=== PATIENT | female | born 1995 | race Caucasian/White ===

== ENCOUNTER 2017-05-29 10:56 | Emergency (ER) | payer OTHER ==
[~2017-05-29] VITALS: Ht 157.5 cm; Wt 57.6 kg
[~2017-05-29 10:56] MED LIST: SERT50TA PO
[2017-05-29] MEDS ORDERED: IV NORMAL SALINE 1,000ML 1,000 ML IV SCH (11:25)
--- NOTE | 2017-05-29 11:31 | PHYS DOC ---
Past History Past Medical History: Depression Past Surgical History: Appendectomy, Alcohol Use: None Drug Use: Marijuana Adult General Chief Complaint Chief Complaint: VOMITING IN HPI HPI Patient is a 21-year-old female who drove herself to the emergency department complaining of vomiting during . Patient states she is about 8 or 9 weeks , she has had 2 ultrasounds that differed by one week. Her last ultrasound was 2 days ago in the doctor's office with one baby, measuring 9 weeks 2 days. Patient is G3, first was a miscarriage, second she had some nausea with occasional vomiting otherwise did well. Patient states for about one week she has been having vomiting of virtually everything she has eaten or drank. Yesterday she was able to keep down one half cup of ROM and but vomited the other half cup. OB doctor, Dr. Mcgee. Patient's next appointment is June 02 or . Patient denies spotting. She states her stomach is sore from vomiting so much. Patient is in good general health. No chronic GI problems. Review of Systems Review of Systems Constitutional: Denies fever or chills [] GI: As in history of present illness : As in history of present illness Musculoskeletal: She has strained muscles from vomiting Allergies Allergies Allergies Coded Allergies Type Severity Reaction Last Updated Verified bee venom (honey bee) Allergy Mild 07/18/15 Yes blue dye Allergy Mild 07/18/15 Yes wasp venom Allergy Mild 07/18/15 Yes Physical Exam Physical Exam Constitutional: Well developed, well nourished, no acute distress, non-toxic appearance. Alert, mentating normally, no acute distress. HENT: Normocephalic, atraumatic, bilateral external ears normal, nose normal. [] Eyes: conjunctiva normal, no discharge. [] Neck: Normal range of motion, no stridor. [] Cardiovascular:Heart rate regular rhythm, no murmur [] Lungs & Thorax: Bilateral breath sounds clear to auscultation [] Abdomen: Bowel sounds normal, soft, nondistended, mild generalized tenderness to palpation, no lower abdominal tenderness, no masses, no pulsatile masses. [] Skin: Warm, dry, no erythema, no rash. [] Extremities: No tenderness, no cyanosis, no clubbing, ROM intact, no edema. [] Neurologic: Alert and oriented X 3, normal motor function, no focal deficits noted. [] EKG EKG [] Radiology/Procedures Radiology/Procedures [] Course & Med Decision Making Course & Med Decision Making Pertinent Labs and Imaging studies reviewed. (See chart for details) 21-year-old female who states she is 8 or 9 weeks , has had 2 ultrasounds, the most recent one 2 days ago showing one live IUP. Presents with 1 week of fairly intractable nausea and vomiting. We will check some labs, give her some IV fluids and IV Zofran. She is agreeable to that plan. Patient had a liter of IV fluids and IV Zofran. She did not vomit in the emergency department. She felt a lot better and is stable for discharge. See instructions for plan. [] Dragon Disclaimer Dragon Disclaimer This electronic medical record was generated, in whole or in part, using a voice recognition dictation system. Departure Departure: Impression: Primary Impression: Vomiting affecting Disposition: HOME, SELF-CARE Condition: IMPROVED Referrals: MAGDY PENA MD (PCP) Patient Instructions: Diet - Hyperemesis Gravidarum, Nausea and Vomiting, Easy- to-Read Additional Instructions: Small amounts of liquids frequently. Drink liquids that have calories such as juices, Sprite, Gatorade, etc. Try Zofran as prescribed, if it helps you may use it, it is safe during . See your doctor as planned and discuss the vomiting with your doctor. Scripts Ondansetron (ONDANSETRON ODT) 4 Mg Tab.rapdis 1 TAB PO PRN Q6-8HRS for NAUSEA, #10 TAB Prov: YANET BARCENAS MD 05/29/17 YANET BARCENAS MD May 29, 2017 11:31
[2017-05-29] MEDS ORDERED: ONDANSETRON PF 4 MG/2 ML VIAL. IV ONE (11:50)
[2017-05-29 11:55] LABS: BASO % 0 % (0-3); EOS # 0.1 x10^3/uL (0.0-0.7); EOS % 1 % (0-3); HEMATOCRIT 39.4 % (36.0-47.0); HEMOGLOBIN 13.4 g/dL (12.0-15.5); LYMPH # 1.1 x10^3/uL (1.0-4.8); LYMPH % 10 % (24-48); MEAN CORPUSCULAR HEMOGLOBIN 30 pg (25-35); MEAN CORPUSCULAR HGB CONC 34 g/dL (31-37); MEAN CORPUSCULAR VOLUME 87 fL (79-100); MONO # 0.6 x10^3/uL (0.0-1.1); MONO % 6 % (0-9); NEUT # 9.3 x10^3uL (1.8-7.7); NEUT % 83 % (31-73); PLATELET COUNT 200 x10^3/uL (140-400); RED BLOOD COUNT 4.51 x10^6/uL (3.50-5.40); RED CELL DISTRIBUTION WIDTH 14.2 % (11.5-14.5); WHITE BLOOD COUNT 11.2 x10^3/uL (4.0-11.0)
[2017-05-29 12:03] VITALS: BP 141/80
[2017-05-29 12:09] LABS: ALBUMIN 3.4 g/dL (3.4-5.0); ALBUMIN/GLOBULIN RATIO 0.9 (1.0-1.7); CREATININE 0.6 mg/dL (0.6-1.0); GFR 127.5; POTASSIUM 3.6 mmol/L (3.5-5.1); TOTAL BILIRUBIN 0.3 mg/dL (0.2-1.0); TOTAL PROTEIN 7.3 g/dL (6.4-8.2)
[2017-05-29] MEDS ORDERED: ONDA4TAB12 PO (12:49)
== END 2017-05-29 12:58 | disposition home or self-care (01) ==
LOC: ER 10:56
DX: O21.9 Vomiting of pregnancy, unspecified (principal); O99.341 Other mental disorders complicating pregnancy, first trimester; O99.321 Drug use complicating pregnancy, first trimester; F32.9 Major depressive disorder, single episode, unspecified; F12.10 Cannabis abuse, uncomplicated; Z3A.09 9 weeks gestation of pregnancy; Z91.030 Bee allergy status; Z91.041 Radiographic dye allergy status; Z91.038 Other insect allergy status
CPT/HCPCS: 36415; 80053; 85025; 96361; 96374; 99284; J2405; J7030

== ENCOUNTER 2017-11-04 21:46 | Emergency (ER) | payer OTHER ==
[~2017-11-04] VITALS: Ht 157.5 cm; Wt 61.7 kg
[~2017-11-04 21:46] MED LIST changes: +ONDA4TAB12 PO
[2017-11-04 21:47] VITALS: BP 113/82
--- NOTE | 2017-11-04 22:08 | PHYS DOC ---
Past History Past Medical History: Depression Past Surgical History: Appendectomy, Alcohol Use: None Drug Use: Marijuana Adult General Chief Complaint Chief Complaint: LACERATION/AVULSION HPI HPI 22-year-old female presents with a small laceration to the pad of her left thumb. She cut the thumb open with a can while she was cooking dinner. She denies any other injuries[] Review of Systems Review of Systems Review of systems is as above otherwise unremarkable. Allergies Allergies Allergies Coded Allergies Type Severity Reaction Last Updated Verified bee venom (honey bee) Allergy Mild 07/18/15 Yes blue dye Allergy Mild 07/18/15 Yes wasp venom Allergy Mild 07/18/15 Yes Physical Exam Physical Exam Constitutional: Well developed, well nourished, no acute distress, non-toxic appearance. [] HENT: Normocephalic, atraumatic, bilateral external ears normal, oropharynx moist, no oral exudates, nose normal. [] Eyes: PERRLA, EOMI, conjunctiva normal, no discharge. [] Neck: Normal range of motion, no tenderness, supple, no stridor. [] Cardiovascular:Heart rate regular rhythm, no murmur [] Lungs & Thorax: Bilateral breath sounds clear to auscultation [] Abdomen: Bowel sounds normal, soft, no tenderness, no masses, no pulsatile masses. [] Skin: 1.5 cm very superficial laceration to the pad of the left thumb. [] Back: No tenderness, no CVA tenderness. [] Extremities: No tenderness, no cyanosis, no clubbing, ROM intact, no edema. [] Neurologic: Alert and oriented X 3, normal motor function, normal sensory function, no focal deficits noted. [] Psychologic: Affect normal, judgement normal, mood normal. [] EKG EKG [] Radiology/Procedures Radiology/Procedures [] Course & Med Decision Making Course & Med Decision Making Pertinent Labs and Imaging studies reviewed. (See chart for details) [Procedure: Laceration repair The wound on the pad of the left thumb was scrubbed with cleaning solution inspected for foreign bodies there were none. He edges of the wound were approximated and held together by tissue adhesive. Patient tolerated the procedure well] Dragon Disclaimer Dragon Disclaimer This electronic medical record was generated, in whole or in part, using a voice recognition dictation system. Departure Departure: Impression: Primary Impression: Thumb laceration Disposition: 01 HOME, SELF-CARE Condition: IMPROVED Referrals: MAGDY PENA MD (PCP) Patient Instructions: Tissue Adhesive Wound Care Additional Instructions: Return to the emergency department with any new or concerning symptoms Problem Qualifiers Primary Impression: Thumb laceration Encounter type: initial encounter Damage to nail status: without damage Foreign body presence: without foreign body Laterality: left Qualified Codes : S61.012A - Laceration without foreign body of left thumb without damage to nail, initial encounter HARMAN HERNÁNDEZ DO Nov 04, 2017 22:08
== END 2017-11-04 22:10 | disposition home or self-care (01) ==
LOC: ER 21:46
DX: S61.012A Laceration without foreign body of left thumb without damage to nail, initial encounter (principal); Z91.030 Bee allergy status; Z91.041 Radiographic dye allergy status; Z91.038 Other insect allergy status; W26.8XXA Contact with other sharp object(s), not elsewhere classified, initial encounter; Y93.G3 Activity, cooking and baking; Y99.8 Other external cause status; Y92.89 Other specified places as the place of occurrence of the external cause
CPT/HCPCS: 12001; 99283

== ENCOUNTER 2018-05-11 18:51 | Emergency (ER) | payer OTHER ==
[~2018-05-11] VITALS: Ht 157.5 cm; Wt 68.9 kg
[2018-05-11 19:02] VITALS: BP 133/80
[2018-05-11] MEDS ORDERED: ACETAMINOPHEN 500 MG TABLET PO ONE ×2 (19:30→19:33)
[2018-05-11] MEDS ORDERED: IBUPROFEN 600 MG TABLET. PO ONE ×2 (19:30→19:33)
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
== END 2018-05-11 19:44 | disposition home or self-care (01) ==
LOC: ER 18:51
DX: S46.812A Strain of other muscles, fascia and tendons at shoulder and upper arm level, left arm, initial encounter (principal); M54.2 Cervicalgia; M54.6 Pain in thoracic spine; F32.9 Major depressive disorder, single episode, unspecified; Z91.030 Bee allergy status; Z91.041 Radiographic dye allergy status; Z91.038 Other insect allergy status; V49.49XA Driver injured in collision with other motor vehicles in traffic accident, initial encounter; Y93.I9 Activity, other involving external motion; Y92.410 Unspecified street and highway as the place of occurrence of the external cause; Y99.8 Other external cause status
CPT/HCPCS: 99283